=== PATIENT | female | born 1980 | race Caucasian/White ===

== ENCOUNTER 2018-01-26 20:24 | Emergency (ER) | payer BC ==
--- NOTE | 2018-01-26 22:02 | ED Physician Documentation ---
PD HPI TRUNK INJURY - Stated complaint Stated Complaint: RIB PAIN - Chief complaint Chief Complaint: Trauma Ch/Bk - History obtained from History obtained from: Patient - History of Present Illness Location: Right chest Type of injury: Fall Timing - onset: How many days ago (3) Timing - duration: Days Timing - details: Abrupt onset Pain level now: 7 Quality: Pain Improved by: Rest Worsened by: Moving, Palpating Associated symtptoms: No: Weakness, Numbness, Tingling, Swelling, Discoloration , Feel faint, Syncope Recently seen: Not recently seen - Additional information Additional information: patient has cerebral palsy. she had headphones on and was dancing while listening to music in her room at home 3 days ago, lost her balance and fell, struck right chest wall on floor. c/o right chest pain that is worse with palpation as well as deep inspiration. she says it is not unusual for her to lose her balance because of the CP Review of Systems Cardiac: reports: Chest pain / pressure (chest wall pain) Respiratory: reports: Reviewed and negative Musculoskeletal: denies: Neck pain, Back pain, Extremity pain Neurologic: denies: Headache, Head injury, LOC PD PAST MEDICAL HISTORY - Past Medical History Past Medical History: Yes Musculoskeletal: Other Other Past Medical History: cerebral palsy - Present Medications Home Medications: Ambulatory Orders Medication Instructions Recorded Confirmed Hydrocodone/Acetaminophen 1 - 2 each PO Q6HR PRN #20 tablet 01/26/18 [Hydrocodon-Acetaminophen 5-325] - Allergies Allergies/Adverse Reactions: Allergies Allergy/AdvReac Type Severity Reaction Status Date / Time No Known Drug Allergies Allergy Verified 01/26/18 20:33 - Social History Does the pt smoke?: Yes Smoking Status: Current every day smoker Does the pt drink ETOH?: Yes Does the pt have substance abuse?: No - Immunizations Immunizations are current?: Yes PD ED PE NORMAL - Vitals Vital signs reviewed: Yes - General General: Alert and oriented X 3, Well developed/nourished, Other (waxing and waning painful discomfort during H+P) - HEENT HEENT: Atraumatic, PERRL, EOMI - Neck Neck: No bony TTP - Respiratory Respiratory: No respiratory distress, Clear bilaterally - Abdomen Abdomen: Soft, Non tender - Extremities Extremities: No tenderness to palpate, Normal ROM s pain, No edema Results - Vitals Vitals: Oxygen O2 Source Room air - Rads (name of study) right ribs/cxr Radiology: Prelim report reviewed, See rad report PD MEDICAL DECISION MAKING - ED course Complexity details: reviewed results, re-evaluated patient, considered differential, d/w patient ED course: I performed bedside US and there is sharp margin at hepatorenal interface (no indication of fluid/blood). incidental noted gallstone - Sepsis Event Vital Signs: Oxygen O2 Source Room air Departure - Departure Disposition: 01 Home, Self Care Clinical Impression: Contusion of chest wall Qualifiers: Encounter type: initial encounter Laterality: right Qualified Code(s): S20.211A - Contusion of right front wall of thorax, initial encounter Condition: Good Instructions: ED Contusion Chest Wall Prescriptions: Hydrocodone/Acetaminophen [Hydrocodon-Acetaminophen 5-325] 1 - 2 each PO Q6HR PRN #20 tablet PRN Reason: Pain Forms: Activity restrictions Discharge Date/Time: 01/26/18 23:18
--- NOTE | 2018-01-26 22:05 | XRAY Report ---
Procedure Date: 01/26/2018 Accession Number: [id number] / [id number] Procedure: XR - Ribs w/PA Chest RT CPT Code: FULL RESULT: EXAM: RIGHT RIB RADIOGRAPHY EXAM DATE: 01/26/2018 09:29 PM. CLINICAL HISTORY: Fall, right-sided rib pain COMPARISON: None. TECHNIQUE: 1 view of the chest and 2 views of the ribs. FINDINGS: Bones: No displaced rib fracture seen. Lungs: No focal opacities. No gross pneumothorax or large effusion. Mediastinum: Heart and mediastinal contours are unremarkable. Other: None. IMPRESSION: No displaced rib fracture or complication from rib fracture seen. RADIA
[2018-01-26] MEDS ORDERED: HYDROcod/ACET 5/325 Prepack 4 PO STA (22:31)
[2018-01-26 23:19] VITALS: BP 136/72
== END 2018-01-26 23:18 | disposition home or self-care (01) ==
LOC: ED 20:24
DX: S20.211A Contusion of right front wall of thorax, initial encounter (principal); W18.39XA Other fall on same level, initial encounter; Y93.41 Activity, dancing; Y92.042 Bedroom in boarding-house as the place of occurrence of the external cause; G80.9 Cerebral palsy, unspecified
CPT/HCPCS: 99283

== ENCOUNTER 2022-09-05 18:59 | Emergency (ER) | payer BC, OTHER ==
[2022-09-05] MEDS ORDERED: KETOROLAC 30 MG/ML VIAL IM STA (21:58)
--- NOTE | 2022-09-05 22:00 | ED Physician Documentation ---
History of Present Illness - Stated complaint Stated Complaint: BILAT FOOT PX - Chief complaint Chief Complaint: Ext Problem - History obtained from History obtained from: Patient - Additonal information Additional information: 42-year-old woman with history of chronic foot pain presents with bunions worsening over the past several days. Patient states she is on her feet all day while at work and is requesting a work note as well as podiatry referral. Review of Systems Musculoskeletal: reports: Extremity pain PD PAST MEDICAL HISTORY - Past Medical History Past Medical History: Yes Endocrine/Autoimmune: HyPOthyroidism Psych: Depression, Anxiety, Other Musculoskeletal: Other Other Past Medical History: Insomnia - Past Surgical History Past Surgical History: Yes - Present Medications Home Medications: Ambulatory Orders Medication Instructions Recorded Confirmed Ketorolac [Toradol] 10 mg PO Q6H PRN #30 tablet 09/05/22 Levothyroxine [Synthroid] 25 mcg PO QDAC 09/05/22 09/05/22 Sertraline [Zoloft] 25 mg PO DAILY 09/05/22 09/05/22 Trazodone HCl 100 mg PO HS 09/05/22 09/05/22 busPIRone [Buspar] 5 mg PO TID PRN 09/05/22 09/05/22 - Allergies Allergies/Adverse Reactions: Allergies Allergy/AdvReac Type Severity Reaction Status Date / Time No Known Drug Allergies Allergy Verified 09/05/22 19:28 - Social History Does the pt smoke?: Yes Smoking Status: Current every day smoker Does the pt drink ETOH?: Yes Does the pt have substance abuse?: No - Immunizations Immunizations are current?: Yes - POLST Patient has POLST: No PD ED PE NORMAL - Vitals Vital signs reviewed: Yes - General General: Alert and oriented X 3, No acute distress, Well developed/nourished - HEENT HEENT: Atraumatic, PERRL, EOMI - Derm Derm: Normal color, Warm and dry - Extremities Extremities: No deformity, No edema, Other (Bilateral bunions to lower extremities. 2+ DP and PT pulses. Normal sensation and movement.) Results - Vitals Vitals: Vital Signs - 24 hr 09/05/22 19:25 Temperature 98.7 C H Heart Rate 73 Respiratory 16 Rate Blood Pressure 135/88 H O2 Saturation 99 Oxygen O2 Source Room air PD Medical Decision Making - ED course ED course: 42-year-old woman presents with acute on chronic bilateral foot pain, requesting work note, analgesia, and podiatry referral. CSM intact. Well-appearing. Symptomatic care provided and return precautions given. Departure - Departure Disposition: 01 Home, Self Care Clinical Impression: Bilateral bunions, Chronic foot pain Condition: Good Instructions: Bunions Follow-Up: Vy Gunter DPM [Provider Admit Priv/Credential] - Prescriptions: Ketorolac [Toradol] 10 mg PO Q6H PRN #30 tablet PRN Reason: Pain Comments: You were seen in the emergency department for foot pain. Please follow-up with your primary care provider as well as podiatry. Return to the emergency department for new or worsening symptoms or other concerns. [facility] in [place]. Forms: Activity restrictions
[2022-09-05 22:16] VITALS: BP 151/92
== END 2022-09-05 22:14 | disposition home or self-care (01) ==
LOC: ED 18:59
DX: Z02.79 Encounter for issue of other medical certificate (principal); M79.672 Pain in left foot; M79.671 Pain in right foot; G89.29 Other chronic pain; M21.612 Bunion of left foot; M21.611 Bunion of right foot; F17.200 Nicotine dependence, unspecified, uncomplicated
CPT/HCPCS: 96372; 99283

== ENCOUNTER 2022-11-25 13:24 | Emergency (ER) | payer OTHER ==
--- NOTE | 2022-11-25 14:08 | XRAY Report ---
PROCEDURE: Chest 2 View X-Ray INDICATIONS: cough with soa. Wheezing. TECHNIQUE: 2 views of the chest were acquired. COMPARISON: None. FINDINGS: Surgical changes and devices: None. Lungs and pleura: No pleural effusions or pneumothorax. Lungs are clear. Mediastinum: Mediastinal contours appear normal. Heart size is normal. Bones and chest wall: No suspicious bony lesions. Overlying soft tissues appear unremarkable. IMPRESSION: No acute cardiopulmonary process. Reviewed by: Matilde Juarez MD on 11/25/2022 2:06 PM PDT Approved by: Matilde Juarez MD on 11/25/2022 2:06 PM PDT Station ID: [id number]
--- NOTE | 2022-11-25 15:27 | ED Physician Documentation ---
PD HPI DYSPNEA - Stated complaint Stated Complaint: SOA,WHEEZING - Chief complaint Chief Complaint: Resp - History obtained from History obtained from: Patient - History of Present Illness Timing - onset: How many days ago (5) Timing - onset during: Light activity Timing - duration: Days (5) Timing - details: Abrupt onset, Still present Inciting event(s): URI. No: Exposure (ie smoke), Immobilization/travel Improved by: Inhaler/neb Associated symptoms: Fever, Cough, Wheezing. No: Hemoptysis Recently seen: Not recently seen Review of Systems Constitutional: reports: Fever, Chills, Myalgias, Fatigue Nose: reports: Congestion. denies: Rhinorrhea / runny nose Throat: reports: Sore throat Cardiac: reports: Chest pain / pressure. denies: Palpitations Respiratory: reports: Dyspnea, Cough, Wheezing GI: reports: Nausea. denies: Vomiting, Diarrhea Skin: denies: Rash, Lesions PD PAST MEDICAL HISTORY - Past Medical History Cardiovascular: None Neuro: None Endocrine/Autoimmune: None, HyPOthyroidism Psych: Depression, Anxiety, Other Musculoskeletal: Other - Past Surgical History Past Surgical History: Yes - Present Medications Home Medications: Ambulatory Orders Medication Instructions Recorded Confirmed Ketorolac [Toradol] 10 mg PO Q6H PRN #30 tablet 09/05/22 Levothyroxine [Synthroid] 25 mcg PO QDAC 09/05/22 09/05/22 Sertraline [Zoloft] 25 mg PO DAILY 09/05/22 09/05/22 Trazodone HCl 100 mg PO HS 09/05/22 09/05/22 busPIRone [Buspar] 5 mg PO TID PRN 09/05/22 09/05/22 Albuterol Sulf [Ventolin Hfa 2 - 3 puffs INH Q4HR PRN #1 each 11/25/22 Inhaler] Benzonatate [Tessalon] 100 mg PO TID PRN #20 cap 11/25/22 dexAMETHasone [Decadron] 4 mg PO DAILY #7 tablet 11/25/22 - Allergies Allergies/Adverse Reactions: Allergies Allergy/AdvReac Type Severity Reaction Status Date / Time No Known Drug Allergies Allergy Verified 11/25/22 13:51 - Social History Does the pt smoke?: Yes Smoking Status: Current every day smoker Does the pt drink ETOH?: Yes Does the pt have substance abuse?: No - Immunizations Immunizations are current?: Yes - POLST Patient has POLST: No PD ED PE NORMAL - Vitals Vital signs reviewed: Yes - General General: Alert and oriented X 3, Well developed/nourished, Other (appears mild labored with breathing. Able to talk sentences. ) - HEENT HEENT: Pharynx benign - Neck Neck: Supple, no meningeal sign, No adenopathy - Cardiac Cardiac: RRR, No murmur - Respiratory Respiratory: No: Clear bilaterally (no coarse sounds. Diffuse holoexpiratory wheezing and prlonged exp phase. ) - Abdomen Abdomen: Soft, Non tender - Derm Derm: Normal color, Warm and dry - Extremities Extremities: No edema, No calf tenderness / cord - Neuro Neuro: Alert and oriented X 3, No motor deficit, Normal speech Results - Vitals Vitals: Vital Signs - 24 hr 11/25/22 11/25/22 11/25/22 13:47 15:51 15:53 Temperature 36.1 C L Heart Rate 79 88 87 Respiratory 24 20 18 Rate Blood Pressure 145/91 H 140/89 H O2 Saturation 99 99 11/25/22 16:43 Temperature Heart Rate 89 Respiratory 20 Rate Blood Pressure O2 Saturation 100 Oxygen O2 Source Room air - Labs Labs: Laboratory Tests 11/25/22 15:53 Nasal Adenovirus (PCR) NOT DETECTED Nasal B. parapertussis DNA (PCR) NOT DETECTED Nasal Coronavir 229E PCR NOT DETECTED Nasal Coronavir HKU1 PCR NOT DETECTED Nasal Coronavir NL63 PCR NOT DETECTED Nasal Coronavir OC43 PCR NOT DETECTED Nasal Enterovir/Rhinovir PCR NOT DETECTED Nasal Influenza B PCR NOT DETECTED Nasal Influenza A PCR NOT DETECTED Nasal Parainfluen 1 PCR NOT DETECTED Nasal Parainfluen 2 PCR NOT DETECTED Nasal Parainfluen 3 PCR NOT DETECTED Nasal Parainfluen 4 PCR NOT DETECTED Nasal RSV (PCR) NOT DETECTED Nasal B.pertussis DNA PCR NOT DETECTED Nasal C.pneumoniae (PCR) NOT DETECTED Hardik Human Metapneumo PCR DETECTED A Nasal M.pneumoniae (PCR) NOT DETECTED Nasal SARS-CoV-2 (PCR) NOT DETECTED - Rads (name of study) chest xray Relevant Findings:: Prelim report reviewed, EMP independent interpretation of test (no infiltrates nor PTX.), See rad report PD Medical Decision Making - ED course Complexity details: reviewed results (negative chest xray), considered differential (URI symptoms with cough and wheezing. Had negative home COVID. ), d/w patient Departure - Departure Disposition: 01 Home, Self Care Clinical Impression: Viral URI with cough, Wheezing Condition: Stable Record reviewed to determine appropriate education?: Yes Instructions: ED URI Viral W Wheezing Prescriptions: Albuterol Sulf [Ventolin Hfa Inhaler] 2 - 3 puffs INH Q4HR PRN #1 each PRN Reason: Shortness Of Air/Wheezing dexAMETHasone [Decadron] 4 mg PO DAILY #7 tablet Benzonatate [Tessalon] 100 mg PO TID PRN #20 cap PRN Reason: Cough Comments: Your chest x-ray is clear without any signs of pneumonia. You do have considerable amount of wheezing initially and that seems to be helped with the inhaler/nebulizer. I would suggest using an albuterol inhaler 2 to 3 puffs 4 times daily regularly for the next several days to week. To that add extra doses if needed for cough and wheeze. Benzonatate every 6 hours if needed for cough. Stay well-hydrated. You can add Robitussin/guaifenesin cough medicine if needed. Given the significant wheeze component, I would suggest adding also Decadron steroid daily for the next several days for the inflammatory portion. We did do a respiratory panel. The results are not back yet but you can look them up on the patient portal later and we do try to call results later as well. Off work today and tomorrow. I would anticipate improving over the next few days. I sent your prescriptions to [facility] pharmacy. Forms: Activity restrictions Discharge Date/Time: 11/25/22 16:43
[2022-11-25] MEDS ORDERED: ALBUTEROL NEB 2.5 MG/3 ML INH STA (15:41)
[2022-11-25] MEDS ORDERED: DEXAMETHASONE 10 MG/ML VIAL PO STA (15:42)
[2022-11-25] MEDS ORDERED: BENZONATATE 100 MG CAPSULE PO STA (15:42)
[2022-11-25] MEDS ORDERED: CHERRY SYRUP 10 ML UDC PO ONE (15:42)
[2022-11-25 15:55] VITALS: BP 140/89
[2022-11-25 16:59] LABS: B. PARAPERTUSSIS- RESP PCR PAN NOT DETECTED; B. PERTUSSIS- RESP PCR PANEL NOT DETECTED; C. PNEUMONIAE- RESP PCR PANEL NOT DETECTED; CORONAVIRUS 229E-RESP PCR NOT DETECTED; CORONAVIRUS HKU1-RESP PCR NOT DETECTED; CORONAVIRUS NL63-RESP PCR NOT DETECTED; CORONAVIRUS OC43-RESP PCR NOT DETECTED; HUMAN METAPNEUMOVIRUS DETECTED; INFLUENZA A- RESP PCR PANEL NOT DETECTED; INFLUENZA B - RESP PCR PANEL NOT DETECTED; M. PNEUMONIAE- RESP PCR PANEL NOT DETECTED; PARAINFLUENZA VIRUS 1 NOT DETECTED; PARAINFLUENZA VIRUS 2 NOT DETECTED; PARAINFLUENZA VIRUS 3 NOT DETECTED; PARAINFLUENZA VIRUS 4 NOT DETECTED; RHINOVIRUS/ENTEROVIRUS NOT DETECTED; RSV- RESP PCR PANEL NOT DETECTED; SARS-CoV-2 -RESP PCR PANEL NOT DETECTED
== END 2022-11-25 16:43 | disposition home or self-care (01) ==
LOC: ED 13:24
DX: J06.9 Acute upper respiratory infection, unspecified (principal); R06.2 Wheezing; F17.200 Nicotine dependence, unspecified, uncomplicated; Z20.822 Contact with and (suspected) exposure to COVID-19
CPT/HCPCS: 71046; 87633; 94640; 99284; A9270

== ENCOUNTER 2023-08-03 12:50 | Emergency (ER) | payer OTHER ==
[2023-08-03 13:05] VITALS: BP 159/90; O2SAT 100
[2023-08-03] MEDS ORDERED: ONDANSETRON ODT 4 MG TABLET TL STA (13:47)
--- NOTE | 2023-08-03 14:11 | XRAY Report ---
PROCEDURE: Hand 3+V LT INDICATIONS: fall/injury to finger TECHNIQUE: 3 views of the hand(s) acquired. COMPARISON: None. FINDINGS: Bones: No fractures or dislocations. No suspicious bony lesions. Soft tissues: No suspicious soft tissue calcifications or masses. IMPRESSION: No acute bony abnormality. Reviewed by: Arjun Cervantes MD on 08/03/2023 2:10 PM PST Approved by: Arjun Cervantes MD on 08/03/2023 2:10 PM PST Station ID: [id number]
--- NOTE | 2023-08-03 14:28 | CT Report ---
PROCEDURE: Head WO INDICATIONS: head injury/bad headache/dizzy TECHNIQUE: Noncontrast 4.5 mm thick angled axial sections acquired from the foramen magnum to the vertex. For r adiation dose reduction, the following was used: automated exposure control, adjustment of mA and/or kV according to patient size. COMPARISON: None. FINDINGS: Image quality: Excellent. CSF spaces: Basal cisterns are patent. No extra-axial fluid collections. Ventricles are normal in size and shape. Brain: No midline shift. No intracranial masses or hemorrhage. White-white matter interface is norm al. Skull and face: Calvarium and visualized facial bones are intact, without suspicious lesions. Sinuses: Visualized sinuses and mastoids are clear. IMPRESSION: No acute intracranial pathology. Reviewed by: Arjun Cervantes MD on 08/03/2023 2:26 PM PST Approved by: Arjun Cervantes MD on 08/03/2023 2:26 PM PST Station ID: [id number]
--- NOTE | 2023-08-03 14:40 | ED Physician Documentation ---
PD HPI HEAD INJURY - Stated complaint Stated Complaint: GLF,HEAD INJ, DIZZINESS - Chief complaint Chief Complaint: Heent - History obtained from History obtained from: Patient - Additional information Additional information: Patient is a 43-year-old female with a history of cerebral palsy presenting for evaluation of a head injury that occurred just prior to arrival. 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 She was carrying a large empty tote when she accidentally tripped over a rug area falling forward. The tote came back and hit her in the head. There was no LOC. She does not take a blood thinner. She does report having a bad headache. She also feels dizzy and nauseous feels sensitive to lights. She also reports bruising and pain to her left fourth digit. Denies injuries elsewhere. Review of Systems Constitutional: denies: Fever Eyes: denies: Decreased vision Cardiac: denies: Chest pain / pressure Respiratory: denies: Dyspnea GI: denies: Abdominal Pain Musculoskeletal: reports: Extremity pain Neurologic: reports: Head injury PD PAST MEDICAL HISTORY - Past Medical History Cardiovascular: None Neuro: None Endocrine/Autoimmune: None, HyPOthyroidism Psych: Depression, Anxiety, Other Musculoskeletal: Other - Past Surgical History Past Surgical History: Yes - Present Medications Home Medications: Ambulatory Orders Medication Instructions Recorded Confirmed Levothyroxine [Synthroid] 25 mcg PO QDAC 09/05/22 09/05/22 busPIRone [Buspar] 5 mg PO TID PRN 09/05/22 09/05/22 Albuterol Sulf [Ventolin Hfa 2 - 3 puffs INH Q4HR PRN #1 each 11/25/22 Inhaler] Meloxicam 7.5 mg PO DAILY 08/03/23 Ondansetron Odt [Zofran] 4 mg TL Q6H PRN #10 tablet 08/03/23 - Allergies Allergies/Adverse Reactions: Allergies Allergy/AdvReac Type Severity Reaction Status Date / Time No Known Drug Allergies Allergy Verified 08/03/23 13:03 - Social History Does the pt smoke?: Yes Smoking Status: Current every day smoker Does the pt drink ETOH?: Yes Does the pt have substance abuse?: No - Immunizations Immunizations are current?: Yes - POLST Patient has POLST: No PD ED PE NORMAL - General General: Alert and oriented X 3, No acute distress, Well developed/nourished - HEENT HEENT: PERRL, EOMI, Moist mucous membranes, Pharynx benign, Other (Contusion to mid forehead) - Neck Neck: Supple, no meningeal sign, No bony TTP - Cardiac Cardiac: RRR, Strong equal pulses - Respiratory Respiratory: No respiratory distress - Abdomen Abdomen: Normal bowel sounds, Soft, Non tender, Non distended - Derm Derm: Warm and dry - Extremities Extremities: Other (Bruising to left fourth digit, normal range of motion) - Neuro Neuro: Alert and oriented X 3, auto washer 2-12 intact, No motor deficit, No sensory deficit, Normal speech Eye Opening: Spontaneous Motor: Obeys Commands Verbal: Oriented GCS Score: 15 Results - Vitals Vitals: Vital Signs - 24 hr 08/03/23 12:55 Temperature 37.2 C Heart Rate 83 Respiratory 16 Rate Blood Pressure 159/90 H O2 Saturation 100 Oxygen O2 Source Room air PD Medical Decision Making - ED course Complexity details: reviewed results, re-evaluated patient, d/w patient ED course: Patient is a 27-year-old female presenting for evaluation after a ground-level fall which was mechanical in nature. She does have a large area of swelling and contusion to her forehead. She does not take a blood thinner. Her neuroexam is normal but she does report having a severe headache and dizziness thus a head CT was ordered.I did review this and it was negative for intracranial hemorrhage. C-spine is cleared by Nexus criteria. She also has a bruise to her left fourth digit. An x-ray was obtained which I reviewed I see no fracture or dislocation. Finger splint was applied. Patient counseled on continued supportive care as well as need for close follow-up and concerning symptoms to return for. She is ambulatory at discharge. Departure - Departure Disposition: 01 Home, Self Care Clinical Impression: Head injury, Finger contusion, Forehead contusion Condition: Stable Instructions: ED Contusion Finger, ED Head Injury Closed Prescriptions: Ondansetron Odt [Zofran] 4 mg TL Q6H PRN #10 tablet PRN Reason: Nausea / Vomiting Comments: You were evaluated after a fall. The CT scan of your head does not show any injuries Such as bleeding around your brain or a skull fracture. The x-ray of your left hand also does not show any fracture to your finger that is bruised. You may have a mild concussion. Please continue with anti-inflammatories, ice to any areas of pain, rest, elevation of your hand to help with swelling. We have also given you a finger splint to use for your bruised finger for additional support. I would recommend close follow-up with your primary care provider. Return to the ER with any worsening. I did send a prescription for antinausea medication to [facility] in [place]. Forms: PCP List, Activity restrictions Discharge Date/Time: 08/03/23 15:10
== END 2023-08-03 15:10 | disposition home or self-care (01) ==
LOC: ED 12:50
DX: S00.83XA Contusion of other part of head, initial encounter (principal); S60.042A Contusion of left ring finger without damage to nail, initial encounter; W01.0XXA Fall on same level from slipping, tripping and stumbling without subsequent striking against object, initial encounter; Y99.0 Civilian activity done for income or pay; G80.9 Cerebral palsy, unspecified; F17.200 Nicotine dependence, unspecified, uncomplicated
CPT/HCPCS: 1040M; 70450; 73130; 99283; 99284; Q0162

== ENCOUNTER 2023-10-07 12:23 | Emergency (ER) | payer OTHER ==
--- NOTE | 2023-10-07 13:10 | ED Physician Documentation ---
PD HPI BACK PAIN - Stated complaint Stated Complaint: BACK PX - Chief complaint Chief Complaint: Back Pain - History obtained from History obtained from: Patient, Family - History of Present Illness Timing - onset: Other (1 month) Pain level max: 6 Pain level now: 5 Location: Lower, Right Quality: Spasm Associated symptoms: No: Fever, Weakness, Numbness, Incontinent of urine, Unable to urinate, Hematuria, Incontinent of stool Improves with: Rest Worsened by: Movement Contributing factors: No: Lifting, Twisting, Anticoagulated, Cancer, IVDA - Additional information Additional information: 43-year-old female presents to the emergency department stating that she has had low right back pain for 1 month. 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 She states that she did not have any pain after the fall at work but about a week later started having right lower back pain. Worse with walking, better with rest. Has been taking Tylenol without relief. Has not seen anybody in the past month. Denies any possibility of . History of cerebral palsy. Patient states that the pain does radiate down both legs. No urinary or fecal incontinence. No IV drug use. No fevers. No chills. Review of Systems Constitutional: denies: Fever, Chills GI: denies: Vomiting, Diarrhea : denies: Incontinent, Now EGA Skin: denies: Rash Musculoskeletal: denies: Neck pain Neurologic: denies: Focal weakness, Numbness, Confused, Altered mental status PD PAST MEDICAL HISTORY - Past Medical History Past Medical History: Yes Cardiovascular: None Neuro: None Endocrine/Autoimmune: None, HyPOthyroidism Psych: Depression, Anxiety, Other Musculoskeletal: Other - Past Surgical History Past Surgical History: Yes - Present Medications Home Medications: Ambulatory Orders Medication Instructions Recorded Confirmed Meloxicam 7.5 mg PO DAILY 08/03/23 10/07/23 Thyroid,Pork [[place] Thyroid] 60 mg PO DAILY 10/07/23 10/07/23 hydrOXYzine HCL [Hydroxyzine HCl] 25 mg PO PRN PRN 10/07/23 10/07/23 methocarbamoL [Robaxin] 500 mg PO Q6H PRN #28 tablet 10/07/23 oxyCODONE [Roxicodone] 5 - 10 mg PO Q6H PRN #14 tablet 03/30/24 MDD 6 predniSONE [Deltasone] 10 mg PO [id number] #42 tab 10/07/23 - Allergies Allergies/Adverse Reactions: Allergies Allergy/AdvReac Type Severity Reaction Status Date / Time No Known Drug Allergies Allergy Verified 10/07/23 12:36 - Social History Does the pt smoke?: No Smoking Status: Never smoker Does the pt drink ETOH?: Yes Does the pt have substance abuse?: No - Immunizations Immunizations are current?: Yes - POLST Patient has POLST: No PD ED PE NORMAL - Vitals Vital signs reviewed: Yes - General General: Alert and oriented X 3, No acute distress - HEENT HEENT: PERRL, Moist mucous membranes - Neck Neck: Supple, no meningeal sign - Cardiac Cardiac: RRR, Strong equal pulses - Respiratory Respiratory: No respiratory distress, Clear bilaterally - Abdomen Abdomen: Soft, Non tender, Non distended - Back Back: No spinal TTP, Other (No midline tenderness to palpation or percussion. No step-off or deformity. 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 Normal great toe extension bilaterally. no saddle anesthesia) Eye Opening: Spontaneous Motor: Obeys Commands Verbal: Oriented GCS Score: 15 - Psych Psych: Normal mood, Normal affect Results - Vitals Vitals: Vital Signs - 24 hr 10/07/23 10/07/23 12:32 13:58 Temperature 36.5 C 36.4 C L Heart Rate 87 87 Respiratory 20 16 Rate Blood Pressure 150/102 H 145/100 H O2 Saturation 99 97 Oxygen O2 Source Room air PD Medical Decision Making - ED course Complexity details: re-evaluated patient, considered differential (No cauda equina, no spinal epidural abscess, no fracture, no aortic dissection or evidence of aneursym rupture), d/w patient, d/w family ED course: 43-year-old female that appears to be bilateral sciatica and right-sided paraspinal spasm. No indication for emergent imaging. No midline tenderness to palpation or percussion. No step-off or deformity. Pain also began about 1 week status post a fall. Her pain is improved here with oxycodone and Robaxin. Will place on steroids, pain medication and muscle relaxants for home. Will have her follow-up with her PCP for further care. Patient ambulated out of the emergency department under her own power without assistance. No urinary or fecal incontinence. No evidence of cauda equina, epidural abscess. Patient counseled regarding signs and symptoms for which I believe and urgent re- evaluation would be necessary. Patient with good understanding of and agreement to plan and is comfortable going home at this time This document was made in part using voice recognition software. While efforts are made to proofread this document, sound alike and grammatical errors may occur. Departure - Departure Disposition: Home, Self Care Clinical Impression: Back spasm Sciatica Qualifiers: Laterality: unspecified laterality Qualified Code(s): M54.30 - Sciatica, unspecified side Condition: Good Instructions: ED Low Back Pain Injury, ED Sciatica Follow-Up: JOSE RIOS ARNP [Primary Care Provider] - Within 1 week Prescriptions: predniSONE [Deltasone] 10 mg PO [id number] #42 tab methocarbamoL [Robaxin] 500 mg PO Q6H PRN #28 tablet PRN Reason: muscle spasm oxyCODONE [Roxicodone] 5 - 10 mg PO Q6H PRN #14 tablet MDD 6 PRN Reason: pain Comments: Your prescriptions were sent to [facility] in [place]. Please use the medications as prescribed. Please follow-up with your doctor for further care. This should improve over the next few days. I am prescribing a short course of narcotic pain medication for you. These are potentially dangerous and addictive medications that should be used carefully. These medications may constipate you. Take an [id number] stool softener (docusate) twice daily with plenty of water while taking these medications. If you go 24 hours without a bowel movement, take [id number] miralax, per package instructions. Do not drink or drive while taking these medications. If you received narcotic or sedating medications while in the emergency department, do not drive for 24 hours. Store this medication in a safe, secure place and out of reach of children. It is a violation of federal law to give or sell this medication to another person or to use in a manner other than prescribed. The ED will not refill narcotic prescriptions, including prescriptions lost or stolen. To dispose of unwanted medications: 1. [facility] at [address] in [place] has a medication drop box. They accept prescription medications (in pill form) Monday through Monday 9:00 a.m. to 5:00 p.m. 2. [facility] accepts prescription medications (in pill form only) for disposal year round. Call for more information. 3. Contact the [facility] for the next [facility] sponsored prescription drug collection event. , [phone], or [phone]; Forms: Activity restrictions Discharge Date/Time: 10/07/23 13:59
[2023-10-07] MEDS: oxyCODONE 5 MG TABLET PO STA (13:22)
[2023-10-07] MEDS: methocarbamoL 500 MG TABLET PO STA (13:22)
[2023-10-07] MEDS: predniSONE 20 MG TABLET PO STA (13:22)
[2023-10-07 14:04] VITALS: BP 145/100; O2SAT 97
== END 2023-10-07 13:59 | disposition home or self-care (01) ==
LOC: ED 12:23
DX: M62.830 Muscle spasm of back (principal); M54.31 Sciatica, right side; M54.32 Sciatica, left side
CPT/HCPCS: 99283; A9270; J7512